=== PATIENT | female | born 1950 | race Caucasian/White ===

== ENCOUNTER 2019-04-08 14:06 | Emergency (ER) | payer MEDICARE ==
[~2019-04-08] VITALS: Ht 165.1 cm; Wt 72.7 kg
[2019-04-08 15:01] LABS: BASOPHILS % (AUTO) 0.4 % (0-1); EOSINOPHILS # (AUTO) 0.1 X10'3 (0-0.9); EOSINOPHILS % (AUTO) 0.7 % (0-6); HEMATOCRIT 31.1 % (35.0-45.0); HEMOGLOBIN 10.7 g/dl (12.0-16.0); LYMPHOCYTES # (AUTO) 0.8 X10'3 (1.1-4.8); LYMPHOCYTES % (AUTO) 7.9 % (21-51); MEAN CORPUSCULAR HEMOGLOBIN 29.6 PG (27.0-31.0); MEAN CORPUSCULAR HGB CONC 34.4 g/dL (33.0-36.5); MEAN PLATELET VOLUME 8.4 FL (7.4-10.4); MONOCYTES # (AUTO) 1.2 X10'3 (0-0.9); MONOCYTES % (AUTO) 11.4 % (2-12); NEUTROPHILS # (AUTO) 8.3 X10'3 (1.8-7.7); NEUTROPHILS % (AUTO) 79.6 % (42-75); PLATELET COUNT 249 X10'3 (140-440); RED BLOOD COUNT 3.62 X10'6 (4.20-5.60); RED CELL DISTRIBUTION WIDTH 13.5 % (11.5-14.5); WHITE BLOOD COUNT 10.4 X10'3 (4.5-11.0)
[2019-04-08 15:04] LABS: ALANINE AMINOTRANSFERASE 56 U/L (12-78); ALBUMIN 3.6 G/DL (3.4-5.0); ALBUMIN/GLOBULIN RATIO 1.1 (1.1-1.5); ALKALINE PHOSPHATASE 64 IU/L (46-116); ANION GAP 15 (8-16); ASPARTATE AMINO TRANSFERASE 45 U/L (10-37); BILIRUBIN,TOTAL 0.3 MG/DL (0.1-1.0); BLOOD UREA NITROGEN 16 MG/DL (7-18); BUN/CREATININE RATIO 15.1 (6.6-38.0); CHLORIDE 105 MMOL/L (99-107); CREATININE 1.06 MG/DL (0.40-0.90); GLUCOSE 150 MG/DL (70-104); POTASSIUM 3.8 MMOL/L (3.5-5.1); SODIUM 142 MMOL/L (135-145); TOTAL CARBON DIOXIDE 21.9 MMOL/L (24-32); TOTAL PROTEIN 6.9 G/DL (6.4-8.2); eGFR 52 ML/MIN
[2019-04-08 15:08] LABS: PARTIAL THROMBOPLASTIN TIME 26 SECONDS (22-32)
[2019-04-08] MEDS ORDERED: LABE100T5 PO (15:38)
[2019-04-08] MEDS ORDERED: ESCI10TA54 PO (15:38)
[2019-04-08] MEDS ORDERED: ZOLP10TA5 (15:38)
[2019-04-08] MEDS ORDERED: BUDE10.2 (15:38)
[2019-04-08] MEDS ORDERED: EXEM25TA PO (15:43)
[2019-04-08 15:47] LABS: LIPASE 333 U/L (73-393); PHOSPHORUS 3.3 MG/DL (2.3-4.5)
[2019-04-08] MEDS ORDERED: iohexol 350MG/ML 100ml bottle IV ONE (15:53)
[2019-04-08] MEDS ORDERED: furosemide 10 MG/1 ML 10ml inj IV ONE (16:25)
[2019-04-08] MEDS ORDERED: metoprolol tartrate 1mg/ml inj IV ONE (17:15)
[2019-04-08 17:57] VITALS: BP 160/103
== END 2019-04-08 18:00 | disposition home or self-care (01) ==
LOC: ER 14:06
DX: R06.02 Shortness of breath (principal); C50.919 Malignant neoplasm of unspecified site of unspecified female breast; R19.7 Diarrhea, unspecified; R05 Cough; I10 Essential (primary) hypertension; Z88.0 Allergy status to penicillin; Z88.1 Allergy status to other antibiotic agents
CPT/HCPCS: 36415; 71045; 71275; 80053; 83605; 83690; 83880; 84100; 84145; 85025; 85379; 85610; 85730; 93005; 96374; 96375; 99284; J1940; Q9967; J3490

== ENCOUNTER 2019-04-12 15:48 | Emergency (ER) | payer MEDICARE ==
[~2019-04-12] VITALS: Ht 165.1 cm; Wt 75.0 kg
[~2019-04-12 15:48] MED LIST: BUDE10.2; ESCI10TA54 PO; EXEM25TA PO; LABE100T5 PO; ZOLP10TA5
[2019-04-12] MEDS ORDERED: HYDROcodone/acetaminophen 10/325mg tab PO ONE (17:45)
[2019-04-12 18:08] LABS: BASOPHILS % (AUTO) 0.5 % (0-1); EOSINOPHILS # (AUTO) 0.3 X10'3 (0-0.9); HEMATOCRIT 33.6 % (35.0-45.0); HEMOGLOBIN 11.8 g/dl (12.0-16.0); LYMPHOCYTES # (AUTO) 0.8 X10'3 (1.1-4.8); LYMPHOCYTES % (AUTO) 7.4 % (21-51); MEAN CORPUSCULAR HEMOGLOBIN 30.1 PG (27.0-31.0); MEAN CORPUSCULAR HGB CONC 35.1 g/dL (33.0-36.5); MEAN CORPUSCULAR VOLUME 85.9 FL (78-98); MEAN PLATELET VOLUME 8.1 FL (7.4-10.4); MONOCYTES # (AUTO) 1.2 X10'3 (0-0.9); MONOCYTES % (AUTO) 10.9 % (2-12); NEUTROPHILS # (AUTO) 8.4 X10'3 (1.8-7.7); NEUTROPHILS % (AUTO) 78.2 % (42-75); PLATELET COUNT 266 X10'3 (140-440); RED BLOOD COUNT 3.91 X10'6 (4.20-5.60); RED CELL DISTRIBUTION WIDTH 13.8 % (11.5-14.5); WHITE BLOOD COUNT 10.8 X10'3 (4.5-11.0)
[2019-04-12 18:27] LABS: ALANINE AMINOTRANSFERASE 42 U/L (12-78); ALBUMIN 3.4 G/DL (3.4-5.0); ALKALINE PHOSPHATASE 62 IU/L (46-116); ANION GAP 8 (8-16); ASPARTATE AMINO TRANSFERASE 20 U/L (10-37); BILIRUBIN,TOTAL 0.4 MG/DL (0.1-1.0); BLOOD UREA NITROGEN 22 MG/DL (7-18); BUN/CREATININE RATIO 19.8 (6.6-38.0); CALCIUM 9.1 MG/DL (8.5-10.1); CHLORIDE 105 MMOL/L (99-107); CREATININE 1.11 MG/DL (0.40-0.90); GLUCOSE 122 MG/DL (70-104); POTASSIUM 3.8 MMOL/L (3.5-5.1); SODIUM 138 MMOL/L (135-145); TOTAL CARBON DIOXIDE 25.1 MMOL/L (24-32); TOTAL PROTEIN 6.7 G/DL (6.4-8.2); eGFR 49 ML/MIN
[2019-04-12] MEDS ORDERED: furosemide 10 MG/1 ML 10ml inj IV ONE (19:00)
[2019-04-12] MEDS ORDERED: furosemide 20MG tablet PO ONE (19:05)
[2019-04-12] MEDS ORDERED: FURO-150 PO (19:06)
[2019-04-12] MEDS ORDERED: HYDR-4353 PO (19:06)
[2019-04-12 19:15] VITALS: BP 166/100
== END 2019-04-12 19:26 | disposition home or self-care (01) ==
LOC: ER 15:49
DX: R06.02 Shortness of breath (principal); C79.81 Secondary malignant neoplasm of breast; M54.5 Low back pain; I11.0 Hypertensive heart disease with heart failure; I50.9 Heart failure, unspecified; Z88.0 Allergy status to penicillin; Z88.1 Allergy status to other antibiotic agents; Z79.899 Other long term (current) drug therapy
CPT/HCPCS: 36415; 71046; 80053; 83880; 84484; 85025; 93005; 99284

== ENCOUNTER → 2021-09-11 | Emergency (ER) | payer MEDICARE ==
[~2021-09-11] MED LIST changes: +ACET-3067 PO; +ASPI-1071 PO; -BUDE10.2; +CARV6.253 PO; +ESCI10TA PO; -ESCI10TA54 PO; -EXEM25TA PO; +FURO20TA4 PO; +IBUP-860 PO; -LABE100T5 PO; +LISI2.5T14 PO; +LISI5TAB22 PO; +LORA-268 PO; +LORA10CA PO; +ONDA-104 PO; +PANT20TA18 PO; +POTA-197 PO; -ZOLP10TA5; +ZOLP10TA5 PO
--- NOTE | 2021-09-11 15:33 | NUR ---
pt left before triage
== END | disposition left against medical advice (07) ==
LOC: ER 14:19
DX: U07.1 COVID-19 (principal); Z53.21 Procedure and treatment not carried out due to patient leaving prior to being seen by health care provider

== ENCOUNTER 2021-09-19 07:39 | Day surgery (SDC) | payer MEDICARE ==
[~2021-09-19] VITALS: Ht 167.6 cm; Wt 71.3 kg
[~2021-09-19 07:39] MED LIST changes: -ACET-3067 PO; -IBUP-860 PO; -LISI5TAB22 PO; -LORA-268 PO; -LORA10CA PO; -ONDA-104 PO; -PANT20TA18 PO
[2021-09-19] MEDS ORDERED: LIDOcaine 1% 30ml preserv. free vial SQ STA (07:49)
[2021-09-19] MEDS ORDERED: ACET-3067 PO (08:16)
[2021-09-19] MEDS ORDERED: LORA10CA PO (08:16)
[2021-09-19] MEDS ORDERED: IBUP-860 PO (08:16)
[2021-09-19] MEDS ORDERED: LISI5TAB22 PO (08:16)
[2021-09-19] MEDS ORDERED: LORA-268 PO (08:16)
[2021-09-19] MEDS ORDERED: ONDA-104 PO (08:16)
[2021-09-19] MEDS ORDERED: PANT20TA18 PO (08:16)
[2021-09-19 08:41] VITALS: BP 146/86
[2021-09-19 08:53] VITALS: BP 142/85
[2021-09-19 09:00] VITALS: BP 154/91
[2021-09-19 09:15] VITALS: BP 142/84
[2021-09-19 09:30] VITALS: BP_SYST 142; BP_SYST 152; BP_DIAS 81; BP_DIAS 85
[2021-09-19 09:45] VITALS: BP 146/80
== END 2021-09-19 09:50 | disposition home or self-care (01) ==
LOC: SSTAY O 07:39
PROVIDERS: ATTEND Radiology Vascular & Interventional Radiology
DX: J90 Pleural effusion, not elsewhere classified (principal); I50.9 Heart failure, unspecified; G47.00 Insomnia, unspecified; Z85.3 Personal history of malignant neoplasm of breast; Z90.12 Acquired absence of left breast and nipple; Z88.0 Allergy status to penicillin; Z88.1 Allergy status to other antibiotic agents; Z91.011 Allergy to milk products; Z79.899 Other long term (current) drug therapy
CPT/HCPCS: 32555

== ENCOUNTER 2021-10-19 10:08 | Emergency (ER) | payer MEDICARE ==
[~2021-10-19] VITALS: Ht 167.6 cm; Wt 70.0 kg
[~2021-10-19 10:08] MED LIST changes: +ACET-3067 PO; -ESCI10TA PO; +IBUP-860 PO; -LISI2.5T14 PO; +LISI5TAB22 PO; +LORA-268 PO; +LORA10CA PO; +ONDA-104 PO; +PANT20TA18 PO
[2021-10-19 10:59] LABS: HEMOGLOBIN 12.1 g/dl (12.0-16.0)
[2021-10-19 11:01] LABS: HEMATOCRIT 35.6 % (35.0-45.0); MEAN CORPUSCULAR HEMOGLOBIN 34.3 PG (27.0-31.0); MEAN CORPUSCULAR HGB CONC 34.1 g/dL (33.0-36.5); MEAN CORPUSCULAR VOLUME 100.6 FL (78-98); MEAN PLATELET VOLUME 8.4 FL (7.4-10.4); PLATELET COUNT 251 X10'3 (140-440); RED BLOOD COUNT 3.53 X10'6 (4.20-5.60); RED CELL DISTRIBUTION WIDTH 14.1 % (11.5-14.5)
[2021-10-19 11:05] LABS: WHITE BLOOD COUNT 25.8 X10'3 (4.5-11.0)
[2021-10-19 11:19] LABS: ALANINE AMINOTRANSFERASE 29 U/L (12-78); ALBUMIN 3.4 G/DL (3.4-5.0); ALKALINE PHOSPHATASE 221 IU/L (46-116); ANION GAP 8 (8-16); ASPARTATE AMINO TRANSFERASE 34 U/L (10-37); BILIRUBIN,TOTAL 0.5 MG/DL (0.1-1.0); BLOOD UREA NITROGEN 7 MG/DL (7-18); BUN/CREATININE RATIO 8.2 (6.6-38.0); CALCIUM 8.4 MG/DL (8.5-10.1); CHLORIDE 109 MMOL/L (99-107); CREATININE 0.85 MG/DL (0.40-0.90); GLUCOSE 113 MG/DL (70-104); SODIUM 142 MMOL/L (135-145); TOTAL CARBON DIOXIDE 25.3 MMOL/L (24-32); TOTAL PROTEIN 6.7 G/DL (6.4-8.2); eGFR 66 ML/MIN
[2021-10-19 11:38] LABS: NUCLEATED RED BLOOD CELLS 1 /100WBC (0-0); TOTAL CELLS COUNTED 100
[2021-10-19 11:39] LABS: PLATELET ESTIMATE NORMAL; POLYCHROMASIA 1+; TOXIC GRANULATION 1+
[2021-10-19 11:43] LABS: TOXIC VACUOLATION FEW
[2021-10-19 12:15] VITALS: BP 141/81
== END 2021-10-19 12:20 | disposition home or self-care (01) ==
LOC: ER 10:09
DX: C79.81 Secondary malignant neoplasm of breast (principal); I11.0 Hypertensive heart disease with heart failure; I50.9 Heart failure, unspecified; Z85.3 Personal history of malignant neoplasm of breast; Z90.12 Acquired absence of left breast and nipple; Z88.0 Allergy status to penicillin; Z88.1 Allergy status to other antibiotic agents; Z91.011 Allergy to milk products; Z79.82 Long term (current) use of aspirin; Z79.899 Other long term (current) drug therapy
CPT/HCPCS: 32555; 36415; 71045; 80053; 83880; 85007; 85025; 93005; 99285

== ENCOUNTER 2021-11-06 06:38 | Day surgery (SDC) | payer MEDICARE ==
[~2021-11-06] VITALS: Ht 167.6 cm; Wt 69.0 kg
[2021-11-06] MEDS ORDERED: albumin 25% 100mL bottle x 1 IV PRN (06:55)
[2021-11-06] MEDS ORDERED: normal saline 1000ml 1,000 ML IV PRN (06:55)
[2021-11-06] MEDS ORDERED: OXYC-658 PO (07:48)
[2021-11-06] MEDS ORDERED: IBUP-24 PO (07:52)
[2021-11-06] MEDS ORDERED: BENZ-49 PO (07:52)
[2021-11-06] MEDS ORDERED: CARV-50 PO (07:52)
[2021-11-06] MEDS ORDERED: PROC10TA10 PO (07:52)
[2021-11-06 08:00] VITALS: BP 145/94
[2021-11-06 08:35] VITALS: BP 150/92
[2021-11-06 08:50] VITALS: BP 145/86
[2021-11-06 09:05] VITALS: BP 153/87
[2021-11-06 09:20] VITALS: BP 149/81
== END 2021-11-06 09:25 | disposition home or self-care (01) ==
LOC: SSTAY O 06:38
PROVIDERS: ATTEND Radiology Vascular & Interventional Radiology
DX: J90 Pleural effusion, not elsewhere classified (principal); F32.9 Major depressive disorder, single episode, unspecified; I50.9 Heart failure, unspecified; G47.00 Insomnia, unspecified; Z85.3 Personal history of malignant neoplasm of breast; Z90.12 Acquired absence of left breast and nipple; Z88.0 Allergy status to penicillin; Z88.1 Allergy status to other antibiotic agents; Z91.011 Allergy to milk products; Z79.899 Other long term (current) drug therapy
CPT/HCPCS: 32555; 88108; 88305; 88341; 88342; 88360

== ENCOUNTER 2021-11-27 07:08 | Day surgery (SDC) | payer MEDICARE ==
[~2021-11-27] VITALS: Ht 167.6 cm; Wt 68.0 kg
[~2021-11-27 07:08] MED LIST changes: -ACET-3067 PO; -ASPI-1071 PO; +BENZ-49 PO; +CARV-50 PO; -CARV6.253 PO; -FURO20TA4 PO; +IBUP-24 PO; -IBUP-860 PO; -LORA-268 PO; -ONDA-104 PO; +OXYC-658 PO; -POTA-197 PO; +PROC10TA10 PO
[2021-11-27] MEDS ORDERED: albumin 25% 100mL bottle x 1 IV PRN (07:25)
[2021-11-27 07:45] VITALS: BP 131/81
[2021-11-27 09:02] VITALS: BP 166/93
[2021-11-27 09:15] VITALS: BP 154/85
[2021-11-27 09:30] VITALS: BP 146/85
[2021-11-27 09:45] VITALS: BP 140/85
== END 2021-11-27 09:55 | disposition home or self-care (01) ==
LOC: SSTAY O 07:08
PROVIDERS: ATTEND Radiology Vascular & Interventional Radiology
DX: J90 Pleural effusion, not elsewhere classified (principal); G47.00 Insomnia, unspecified; I50.9 Heart failure, unspecified; F32.9 Major depressive disorder, single episode, unspecified; Z85.3 Personal history of malignant neoplasm of breast; Z90.12 Acquired absence of left breast and nipple; Z79.899 Other long term (current) drug therapy
CPT/HCPCS: 32555

== ENCOUNTER 2021-12-12 08:06 | Day surgery (SDC) | payer MEDICARE ==
[~2021-12-12] VITALS: Ht 167.6 cm; Wt 66.3 kg
[~2021-12-12 08:06] MED LIST changes: -LORA10CA PO
[2021-12-12] MEDS ORDERED: albumin 25% 100mL bottle x 1 IV PRN (08:25)
[2021-12-12] MEDS ORDERED: LIDOcaine 1% 30ml preserv. free vial SQ STA (08:32)
[2021-12-12 09:00] VITALS: BP 139/80
[2021-12-12 09:54] VITALS: BP 138/80
[2021-12-12 09:55] VITALS: BP 153/86
[2021-12-12 10:00] VITALS: BP 161/86
== END 2021-12-12 10:36 | disposition home or self-care (01) ==
LOC: SSTAY O 08:06
PROVIDERS: ATTEND Radiology Diagnostic Radiology
DX: J90 Pleural effusion, not elsewhere classified (principal); G47.00 Insomnia, unspecified; I50.9 Heart failure, unspecified; F32.A Depression, unspecified; Z85.3 Personal history of malignant neoplasm of breast; Z90.12 Acquired absence of left breast and nipple; Z88.0 Allergy status to penicillin; Z91.011 Allergy to milk products; Z88.1 Allergy status to other antibiotic agents; Z79.899 Other long term (current) drug therapy
CPT/HCPCS: 32555

== ENCOUNTER 2021-12-26 06:05 | Day surgery (SDC) | payer MEDICARE ==
[~2021-12-26] VITALS: Ht 167.6 cm; Wt 66.9 kg
[2021-12-26] MEDS ORDERED: LIDOcaine 1% 30ml preserv. free vial SQ STA (06:18)
[2021-12-26] MEDS ORDERED: CARV12.5 PO (06:26)
[2021-12-26] MEDS ORDERED: ASPI-611 PO (06:26)
[2021-12-26] MEDS ORDERED: albumin 25% 100mL bottle x 1 IV PRN (06:40)
[2021-12-26] MEDS ORDERED: normal saline 1000ml 1,000 ML IV PRN (06:40)
[2021-12-26 06:45] VITALS: BP 141/86
[2021-12-26 08:17] VITALS: BP 149/94
[2021-12-26 08:28] VITALS: BP 147/84
[2021-12-26 08:49] VITALS: BP 151/81
== END 2021-12-26 09:08 | disposition home or self-care (01) ==
LOC: SSTAY O 06:05
PROVIDERS: ATTEND Radiology Vascular & Interventional Radiology
DX: J90 Pleural effusion, not elsewhere classified (principal); F32.9 Major depressive disorder, single episode, unspecified; G47.00 Insomnia, unspecified; I50.9 Heart failure, unspecified; Z90.12 Acquired absence of left breast and nipple; Z91.011 Allergy to milk products; Z88.1 Allergy status to other antibiotic agents; Z88.0 Allergy status to penicillin; Z79.899 Other long term (current) drug therapy
CPT/HCPCS: 32555

== ENCOUNTER 2022-01-09 08:18 | Day surgery (SDC) | payer MEDICARE ==
[~2022-01-09] VITALS: Ht 167.6 cm; Wt 66.7 kg
[~2022-01-09 08:18] MED LIST changes: +ASPI-611 PO; -BENZ-49 PO; -CARV-50 PO; +CARV12.5 PO; -PROC10TA10 PO
[2022-01-09] MEDS ORDERED: LIDOcaine 1%/PF 5ML 10 MG/ML VIAL SQ ONE (08:25)
[2022-01-09 08:40] VITALS: BP 137/87
[2022-01-09] MEDS ORDERED: albumin 25% 100mL bottle x 1 IV PRN (08:55)
[2022-01-09 09:10] VITALS: BP 130/82
[2022-01-09 09:20] VITALS: BP 157/99
[2022-01-09 09:30] VITALS: BP 140/86
== END 2022-01-09 10:15 | disposition home or self-care (01) ==
LOC: SSTAY O 08:18
PROVIDERS: ATTEND Radiology Diagnostic Radiology
DX: J90 Pleural effusion, not elsewhere classified (principal); G47.00 Insomnia, unspecified; I50.9 Heart failure, unspecified; F32.A Depression, unspecified; Z85.3 Personal history of malignant neoplasm of breast; Z90.12 Acquired absence of left breast and nipple; Z88.0 Allergy status to penicillin; Z88.1 Allergy status to other antibiotic agents; Z91.011 Allergy to milk products; Z79.82 Long term (current) use of aspirin; Z79.899 Other long term (current) drug therapy
CPT/HCPCS: 32555

== ENCOUNTER 2022-01-22 08:39 | Day surgery (SDC) | payer MEDICARE ==
[~2022-01-22] VITALS: Ht 167.6 cm; Wt 65.4 kg
[~2022-01-22 08:39] MED LIST changes: +LIDOcaine 1%/PF 5ML 10 MG/ML VIAL IJ ONE
[2022-01-22 09:00] VITALS: BP 132/89
[2022-01-22] MEDS ORDERED: ONDA-104 PO (09:05)
[2022-01-22] MEDS ORDERED: CHEMOTHERAPY (09:05)
[2022-01-22] MEDS ORDERED: albumin 25% 100mL bottle x 1 IV PRN (09:20)
[2022-01-22 10:10] VITALS: BP 141/82
[2022-01-22 10:25] VITALS: BP 141/79
[2022-01-22 10:40] VITALS: BP 126/79
[2022-01-22 10:50] VITALS: BP 131/72
== END 2022-01-22 10:50 | disposition home or self-care (01) ==
LOC: SSTAY O 08:39
PROVIDERS: ATTEND Radiology Diagnostic Radiology
DX: J90 Pleural effusion, not elsewhere classified (principal); F32.9 Major depressive disorder, single episode, unspecified; I50.9 Heart failure, unspecified; G47.00 Insomnia, unspecified; Z85.3 Personal history of malignant neoplasm of breast; Z90.12 Acquired absence of left breast and nipple; Z79.899 Other long term (current) drug therapy
CPT/HCPCS: 32555; J3490

== ENCOUNTER 2022-02-02 07:34 | Day surgery (SDC) | payer MEDICARE ==
[~2022-02-02] VITALS: Ht 167.6 cm; Wt 65.5 kg
[2022-02-02] VITALS (7 sets, daily range): BP systolic 132–143; BP diastolic 78–88
[~2022-02-02 07:34] MED LIST changes: +CHEMOTHERAPY; -LIDOcaine 1%/PF 5ML 10 MG/ML VIAL IJ ONE; +ONDA-104 PO
[2022-02-02] MEDS ORDERED: LIDOcaine 1%/PF 5ML 10 MG/ML VIAL SQ ONE (08:05)
== END 2022-02-02 09:45 | disposition home or self-care (01) ==
LOC: SSTAY O 07:34
PROVIDERS: ATTEND Radiology Vascular & Interventional Radiology
DX: J90 Pleural effusion, not elsewhere classified (principal); F32.A Depression, unspecified; G47.00 Insomnia, unspecified; I50.9 Heart failure, unspecified; Z85.3 Personal history of malignant neoplasm of breast; Z90.12 Acquired absence of left breast and nipple; Z79.899 Other long term (current) drug therapy
CPT/HCPCS: 32555

== ENCOUNTER 2022-02-12 07:37 | Day surgery (SDC) | payer MEDICARE ==
[~2022-02-12] VITALS: Ht 167.6 cm; Wt 63.2 kg
[2022-02-12] MEDS ORDERED: LIDOcaine 1%/PF 5ML 10 MG/ML VIAL SQ ONE (07:40)
[2022-02-12] MEDS ORDERED: albumin 25% 100mL bottle x 1 IV PRN (08:00)
[2022-02-12] MEDS ORDERED: PROC10TA10 PO (08:00)
[2022-02-12 08:04] VITALS: BP 135/73
[2022-02-12 09:10] VITALS: BP 140/85
[2022-02-12 09:15] VITALS: BP 131/77
[2022-02-12 09:40] VITALS: BP 127/81
[2022-02-12 09:55] VITALS: BP 136/76
== END 2022-02-12 10:07 | disposition home or self-care (01) ==
LOC: SSTAY O 07:37
PROVIDERS: ATTEND Preventive Medicine Aerospace Medicine
DX: J90 Pleural effusion, not elsewhere classified (principal); F32.9 Major depressive disorder, single episode, unspecified; G47.00 Insomnia, unspecified; I50.9 Heart failure, unspecified; Z85.3 Personal history of malignant neoplasm of breast; Z90.12 Acquired absence of left breast and nipple; Z88.0 Allergy status to penicillin; Z88.1 Allergy status to other antibiotic agents; Z91.011 Allergy to milk products; Z79.82 Long term (current) use of aspirin; Z79.899 Other long term (current) drug therapy
CPT/HCPCS: 32555; J3490

== ENCOUNTER 2022-02-18 06:35 | Day surgery (SDC) | payer MEDICARE ==
[~2022-02-18] VITALS: Ht 167.6 cm; Wt 62.5 kg
[~2022-02-18 06:35] MED LIST changes: -CHEMOTHERAPY; +PROC10TA10 PO
[2022-02-18] MEDS ORDERED: normal saline 1000ml 1,000 ML IV SCH (07:00)
[2022-02-18 07:09] VITALS: BP 132/75
[2022-02-18] MEDS ORDERED: CARV6.253 PO (07:17)
[2022-02-18] MEDS ORDERED: BENZ-49 PO (07:19)
[2022-02-18] MEDS ORDERED: FLUT16SP26 (07:22)
[2022-02-18] MEDS ORDERED: AZEL137S4 (07:22)
[2022-02-18] MEDS ORDERED: LORA10TA7 PO (07:28)
[2022-02-18] MEDS ORDERED: CIRCUMIN (07:28)
[2022-02-18] MEDS ORDERED: calcium carbonate PO (07:28)
[2022-02-18 07:34] LABS: BASOPHILS % (AUTO) 0.3 % (0-1); EOSINOPHILS # (AUTO) 0.1 X10'3 (0-0.9); EOSINOPHILS % (AUTO) 1.3 % (0-6); HEMATOCRIT 33.9 % (35.0-45.0); HEMOGLOBIN 11.7 g/dl (12.0-16.0); LYMPHOCYTES # (AUTO) 0.9 X10'3 (1.1-4.8); LYMPHOCYTES % (AUTO) 9.8 % (21-51); MEAN CORPUSCULAR HEMOGLOBIN 31.7 PG (27.0-31.0); MEAN CORPUSCULAR HGB CONC 34.4 g/dL (33.0-36.5); MEAN CORPUSCULAR VOLUME 92.1 FL (78-98); MEAN PLATELET VOLUME 8.6 FL (7.4-10.4); MONOCYTES # (AUTO) 0.9 X10'3 (0-0.9); MONOCYTES % (AUTO) 9.1 % (2-12); NEUTROPHILS # (AUTO) 7.4 X10'3 (1.8-7.7); NEUTROPHILS % (AUTO) 79.5 % (42-75); PLATELET COUNT 307 X10'3 (140-440); RED BLOOD COUNT 3.68 X10'6 (4.20-5.60); RED CELL DISTRIBUTION WIDTH 14.7 % (11.5-14.5); WHITE BLOOD COUNT 9.3 X10'3 (4.5-11.0)
[2022-02-18 07:45] LABS: ALBUMIN 2.7 G/DL (3.4-5.0); ANION GAP 11 (8-16); BLOOD UREA NITROGEN 11 MG/DL (7-18); BUN/CREATININE RATIO 10.6 (6.6-38.0); CHLORIDE 111 MMOL/L (99-107); CREATININE 1.04 MG/DL (0.40-0.90); GLUCOSE 113 MG/DL (70-104); POTASSIUM 4.3 MMOL/L (3.5-5.1); SODIUM 147 MMOL/L (135-145); TOTAL CARBON DIOXIDE 25.5 MMOL/L (24-32); eGFR 53 ML/MIN
[2022-02-18] MEDS ORDERED: LIDOcaine 1%/PF 5ML 10 MG/ML VIAL ONE (08:44)
[2022-02-18] MEDS ORDERED: fentaNYL/PF 50MCG/1 ML 2ML syringe ONE (08:51)
[2022-02-18] MEDS ORDERED: midazolam 1 mg/ML 2ml injection ONE (08:51)
[2022-02-18] MEDS ORDERED: LIDOcaine 1% (10mg/ml) 2ml vial ONE (09:40)
[2022-02-18 09:56] VITALS: BP 118/61
[2022-02-18 10:15] VITALS: BP 127/72
[2022-02-18 10:30] VITALS: BP 123/70
[2022-02-18 10:45] VITALS: BP 133/75
[2022-02-18 11:00] VITALS: BP 131/74
== END 2022-02-18 11:15 | disposition home or self-care (01) ==
LOC: SSTAY O 06:35
PROVIDERS: ATTEND Preventive Medicine Aerospace Medicine
DX: C50.919 Malignant neoplasm of unspecified site of unspecified female breast (principal); J91.0 Malignant pleural effusion; Z79.899 Other long term (current) drug therapy; Z79.82 Long term (current) use of aspirin
CPT/HCPCS: 32550; 36415; 75989; 80048; 85025; 99152; 99153; C1894; J2250; J3010; J3490; J7030